=== PATIENT | male | born 1985 | race Asian ===

== ENCOUNTER 2021-05-18 12:13 | Emergency (ER) | payer BC, SELFPAY ==
[2021-05-18] VITALS (37 sets, daily range): BP systolic 141–170; BP diastolic 75–98; PULSE 88–120; RESP 14–27; TEMP 36.6; O2SAT 93–97
--- NOTE | 2021-05-18 12:15 | RT.EKG_ITS ---
APPROVED REPORT Exam: Resting ECG Reason for Exam: DIZZY,LEFT ARM PAIN Patient Location: E HR:104 bpm ECG Measurements Heart Rate 104 AXIS OK 137 P 24 QRSd 99 QRS 42 QT 366 T 168 QTc 481 Conclusion Sinus tachycardia...rate> 99 Probable left atrial enlargement...P >50mS, <-0.10mV V1 Consider anteroseptal infarct...Q >30mS, dimin R, V1-V2 Abnrm T, consider ischemia, anterolateral lds...T <-0.20mV, I aVL V2-V6
[2021-05-18 12:44] LABS: Abs Immature Grans 0.02 10^3/uL (0.0-0.06); Absolute Basophil Count 0.03 10^3/uL (0.0-0.2); Absolute Lymphocyte Count 1.25 10^3/uL (1.2-3.4); Absolute Monocyte Count 0.54 10^3/uL (0.1-0.8); Absolute Neutrophil Count 6.88 10^3/uL (1.2-6.7); Basophils % 0.3; HGB 17.4 g/dL (13.5-17.5); Immature Grans % 0.2; Lymphocytes % 14.3; MCH 29.1 pg (27.0-33.0); MCHC 34.1 % (32.0-36.0); MCV 85.4 fL (80-95); MPV 10.5 fL (8.0-11.0); Monocytes % 6.2; Nucleated RBC 0 %; Platelet Count 296 10^3/uL (130-400); RBC 5.97 10^6/uL (4.36-5.78); RDW 11.9 % (11.8-14.1); RDW-SD 37.1 fL; WBC 8.72 10^3/uL (4.4-10.8)
[2021-05-18 12:58] LABS: ALT 43 U/L (16-63); AST 23 U/L (15-37); Albumin 4.4 g/dL (3.4-5.0); Alkaline Phosphatase 78 U/L (46-116); Anion Gap 9.8 mmol/L (3-11); BUN 15 mg/dL (7-18); Bilirubin, Total 1.2 mg/dL (0.2-1.0); CO2 26.2 mmol/L (21.0-32.0); Chloride 103 mmol/L (98-107); Glucose 108 mg/dL (74-106); PTT Activated 25.4 sec (21.0-27.5); Potassium 3.9 mmol/L (3.5-5.1); Sodium 139 mmol/L (136-145); Total Protein 7.7 g/dL (6.4-8.2)
[2021-05-18 13:05] LABS: Source Nasal/Nares
[2021-05-18 13:05] LABS: Troponin I 241 ng/L (<or=60)
[2021-05-18 13:09] LABS: TSH (W/Ref FT4) 1.17 uIU/mL (0.36-3.74)
--- NOTE | 2021-05-18 13:13 | W.ED.GENAD ---
Discharge Plan Disposition Patient Disposition: PETER DEMARCO ([facility]) Condition: Serious Discharge Details Clinical Impression: Acute non-ST elevation myocardial infarction (NSTEMI), Acute electrocardiogram changes Primary Care Provider: Craig Agudelo ED Provider: Jorge Butts Home Meds and New Rx's Prescriptions: No Action fluticasone propionate [Flonase] 50 mcg/actuation [place],Suspension 2 spray INTRANASAL DAILY RF: 0 Discharge Data Discharge Date/Time-TO BE ENTERED AT DEPARTURE: 05/18/21 16:49 Medical Decision Making 1315 -- 35-year-old male with history of borderline hypertension, here with palpitations that started last night and chest discomfort that started this morning with associated lightheadedness. Consider ACS although patient has no known risk factors. EKG was reviewed and interpreted by me: Sinus tachycardia 104 bpm, concerning biphasic T waves inferior lateral, also concern for delta wave. Consider ACS and WPW. Consider myocarditis. Troponin I elevated at 241. I will initiate treatment with heparin and aspirin and plavix. I have called [facility] to request transfer to higher level of care. 1550 -- I spoke with math specialist at [facility], cardiology correctional supply supervisor at [facility], unfortunately there are capacity unable to accept the patient in transfer at this time but will plan to accept as soon as possible when a bed becomes available likely tomorrow. Recommend seeing if other tertiary care facility is able to accept to her. Polyethylene Combiner does recommend adding Lipitor 80 mg as well as nitroglycerin for pain. 1605 -- I spoke with Dr. Reyes (cardiology) who agrees with need for transfer and will accept the patient. I spoke with Dr. Vargas, who will accept patient in ED in transfer. Lab Data Lab results reviewed: Yes I reviewed the patient's lab results. Labs: Laboratory Tests Range/Units 05/18/21 05/18/21 05/18/21 12:37 12:37 12:37 WBC (4.4-10.8) 10^3/uL RBC (4.36-5.78) 10^6/uL Hgb (13.5-17.5) g/dL Hct (40.0-50.0) % MCV (80-95) fL MCH (27.0-33.0) pg MCHC (32.0-36.0) % RDW (11.8-14.1) % Plt Count (130-400) 10^3/uL MPV (8.0-11.0) fL Immature Gran % Neutrophils % Lymphocytes % Monocytes % Eosinophils % Basophils % Nucleated RBC % % Absolute Neutrophils (1.2-6.7) 10^3/uL Absolute Lymphocytes (1.2-3.4) 10^3/uL Absolute Monocytes (0.1-0.8) 10^3/uL Absolute Eosinophils (0.0-0.7) 10^3/uL Absolute Basophils (0.0-0.2) 10^3/uL APTT (21.0-27.5) sec 25.4 Sodium (136-145) mmol/L 139 Potassium (3.5-5.1) mmol/L 3.9 Chloride (98-107) mmol/L 103 Carbon Dioxide (21.0-32.0) mmol/L 26.2 Anion Gap (3-11) mmol/L 9.8 BUN (7-18) mg/dL 15 Creatinine (0.70-1.30) mg/dL 1.0 Estimated GFR/1.73 m2 (mL/min/1.73m2) >= 60.00 Glucose (74-106) mg/dL 108 H Calcium (8.5-10.1) mg/dL 9.0 Magnesium (1.8-2.4) mg/dL 2.0 Total Bilirubin (0.2-1.0) mg/dL 1.2 H AST (15-37) U/L 23 ALT (16-63) U/L 43 Alkaline Phosphatase (46-116) U/L 78 Troponin I (<or=60) ng/L 241 H* Total Protein (6.4-8.2) g/dL 7.7 Albumin (3.4-5.0) g/dL 4.4 TSH (0.36-3.74) uIU/mL 1.17 COVID-19 Source SARS-CoV-2 (PCR) (Negative) Range/Units 05/18/21 05/18/21 05/18/21 12:37 12:40 15:10 WBC (4.4-10.8) 10^3/uL 8.72 RBC (4.36-5.78) 10^6/uL 5.97 H Hgb (13.5-17.5) g/dL 17.4 Hct (40.0-50.0) % 51.0 H MCV (80-95) fL 85.4 MCH (27.0-33.0) pg 29.1 MCHC (32.0-36.0) % 34.1 RDW (11.8-14.1) % 11.9 Plt Count (130-400) 10^3/uL 296 MPV (8.0-11.0) fL 10.5 Immature Gran % 0.2 Neutrophils % 79.0 Lymphocytes % 14.3 Monocytes % 6.2 Eosinophils % 0.0 Basophils % 0.3 Nucleated RBC % % 0 Absolute Neutrophils (1.2-6.7) 10^3/uL 6.88 H Absolute Lymphocytes (1.2-3.4) 10^3/uL 1.25 Absolute Monocytes (0.1-0.8) 10^3/uL 0.54 Absolute Eosinophils (0.0-0.7) 10^3/uL 0.00 Absolute Basophils (0.0-0.2) 10^3/uL 0.03 APTT (21.0-27.5) sec Sodium (136-145) mmol/L Potassium (3.5-5.1) mmol/L Chloride (98-107) mmol/L Carbon Dioxide (21.0-32.0) mmol/L Anion Gap (3-11) mmol/L BUN (7-18) mg/dL Creatinine (0.70-1.30) mg/dL Estimated GFR/1.73 m2 (mL/min/1.73m2) Glucose (74-106) mg/dL Calcium (8.5-10.1) mg/dL Magnesium (1.8-2.4) mg/dL Total Bilirubin (0.2-1.0) mg/dL AST (15-37) U/L ALT (16-63) U/L Alkaline Phosphatase (46-116) U/L Troponin I (<or=60) ng/L 221 H* Total Protein (6.4-8.2) g/dL Albumin (3.4-5.0) g/dL TSH (0.36-3.74) uIU/mL COVID-19 Source Nasal/Nares SARS-CoV-2 (PCR) (Negative) Negative HPI General Mode of arrival: ambulatory. Date/Time Provider Initiated Documentation: 05/18/21 12:16. Limitations to Documentation: no limitations. Information obtained by: patient. HPI Narrative: 35-year-old male with history of borderline elevated blood pressure , otherwise healthy, presents today with chief complaint of chest discomfort. Patient notes last night he developed palpitations while in bed. Palpitations were moderate to severe. He has never had similar in the past. He was able to fall asleep and when he woke up he seemed to be feeling better. He went to work. While at work he develop chest discomfort described as a heaviness. He also noted some lightheadedness and difficulty concentrating. Discomfort in his chest radiated into his left arm. Chest discomfort started around 10 AM. He does not have active chest pain at this time. Related Data Home Medications Medication Instructions Recorded Confirmed fluticasone propionate [Flonase] 2 spray INTRANASAL DAILY 05/18/21 05/18/21 Allergies Allergy/AdvReac Type Severity Reaction Status Date / Time No Known Allergies Allergy Unverified 05/18/21 12:27 General Stated Complaint: Dizzy/Sync JENNIFFER: 2 Review of Systems All systems reviewed & are unremarkable except as noted in HPI and below Constitutional Constitutional: Denies fever(s) Cardiovascular Cardiovascular: Reports chest pain PFSH All Active Problems (Updated 05/18/21 @ 16:26 by Jorge Butts MD) Acute non-ST elevation myocardial infarction (NSTEMI) (Acute) Acute electrocardiogram changes (Acute) Social History Smoking/Tobacco Use Status: Never Smoking risk assessment performed?: Yes Alcohol Intake: current Alcohol Intake frequency: a few times a month Drug use: Never Do you feel safe at home: Yes Do you feel safe in your relationship?: Yes Exam Const General: cooperative and no acute distress HENMT Mouth: moist mucous membranes Eyes Conjunctivae: normal conjunctivae Sclera: normal sclerae Neck Neck: trachea midline and supple Resp Auscultation: clear to auscultation bilaterally, no rales, no rhonchi and no wheezes Cardio Rate: regular rate and not tachycardic Rhythm: regular rhythm GI Palpation: soft, not firm, no guarding, no masses, not rigid and nontender Skin General skin exam: no rashes or lesions noted Neuro General: patient alert, patient awake, patient oriented x3 and tone normal Extrem General: no calf tenderness and no edema Psych Appearance: grossly normal Mental Status: mental status grossly normal Course Vital Signs Vital signs: Vital Signs Temperature 36.6 C 05/18/21 12:21 Pulse 110 H 05/18/21 12:21 Respiratory Rate 18 05/18/21 12:21 Blood Pressure 159/94 H 05/18/21 12:21 Pulse Oximetry 96 05/18/21 12:21 Temperature 36.6 C 05/18/21 12:21 Temperature Source Temporal Artery Scan 05/18/21 12:21 Pulse 110 H 05/18/21 12:21 Respiratory Rate 18 05/18/21 12:29 Respiratory Effort Non-Labored 05/18/21 12:29 Respiratory Depth Normal 05/18/21 12:29 Respiratory Pattern Normal 05/18/21 12:29 Blood Pressure 159/94 H 05/18/21 12:21 Blood Pressure Position Supine 05/18/21 12:21 Pulse Oximetry 96 05/18/21 12:21 Oxygen Delivery Method Room Air 05/18/21 12:21 Oxygen Flow Rate 0 05/18/21 12:21 Pain Level 2 05/18/21 12:21 Lab/Test Results Lab/Test Results: Laboratory Tests Range/Units 05/18/21 05/18/21 05/18/21 12:37 12:37 12:37 WBC (4.4-10.8) 10^3/uL 8.72 RBC (4.36-5.78) 10^6/uL 5.97 H Hgb (13.5-17.5) g/dL 17.4 Hct (40.0-50.0) % 51.0 H MCV (80-95) fL 85.4 MCH (27.0-33.0) pg 29.1 MCHC (32.0-36.0) % 34.1 RDW (11.8-14.1) % 11.9 Plt Count (130-400) 10^3/uL 296 MPV (8.0-11.0) fL 10.5 Immature Gran % 0.2 Neutrophils % 79.0 Lymphocytes % 14.3 Monocytes % 6.2 Eosinophils % 0.0 Basophils % 0.3 Nucleated RBC % % 0 Absolute Neutrophils (1.2-6.7) 10^3/uL 6.88 H Absolute Lymphocytes (1.2-3.4) 10^3/uL 1.25 Absolute Monocytes (0.1-0.8) 10^3/uL 0.54 Absolute Eosinophils (0.0-0.7) 10^3/uL 0.00 Absolute Basophils (0.0-0.2) 10^3/uL 0.03 APTT (21.0-27.5) sec 25.4 Sodium (136-145) mmol/L 139 Potassium (3.5-5.1) mmol/L 3.9 Chloride (98-107) mmol/L 103 Carbon Dioxide (21.0-32.0) mmol/L 26.2 Anion Gap (3-11) mmol/L 9.8 BUN (7-18) mg/dL 15 Creatinine (0.70-1.30) mg/dL 1.0 Estimated GFR/1.73 m2 (mL/min/1.73m2) >= 60.00 Glucose (74-106) mg/dL 108 H Calcium (8.5-10.1) mg/dL 9.0 Magnesium (1.8-2.4) mg/dL 2.0 Total Bilirubin (0.2-1.0) mg/dL 1.2 H AST (15-37) U/L 23 ALT (16-63) U/L 43 Alkaline Phosphatase (46-116) U/L 78 Troponin I (<or=60) ng/L 241 H* Total Protein (6.4-8.2) g/dL 7.7 Albumin (3.4-5.0) g/dL 4.4 COVID-19 Source Range/Units 05/18/21 12:40 WBC (4.4-10.8) 10^3/uL RBC (4.36-5.78) 10^6/uL Hgb (13.5-17.5) g/dL Hct (40.0-50.0) % MCV (80-95) fL MCH (27.0-33.0) pg MCHC (32.0-36.0) % RDW (11.8-14.1) % Plt Count (130-400) 10^3/uL MPV (8.0-11.0) fL Immature Gran % Neutrophils % Lymphocytes % Monocytes % Eosinophils % Basophils % Nucleated RBC % % Absolute Neutrophils (1.2-6.7) 10^3/uL Absolute Lymphocytes (1.2-3.4) 10^3/uL Absolute Monocytes (0.1-0.8) 10^3/uL Absolute Eosinophils (0.0-0.7) 10^3/uL Absolute Basophils (0.0-0.2) 10^3/uL APTT (21.0-27.5) sec Sodium (136-145) mmol/L Potassium (3.5-5.1) mmol/L Chloride (98-107) mmol/L Carbon Dioxide (21.0-32.0) mmol/L Anion Gap (3-11) mmol/L BUN (7-18) mg/dL Creatinine (0.70-1.30) mg/dL Estimated GFR/1.73 m2 (mL/min/1.73m2) Glucose (74-106) mg/dL Calcium (8.5-10.1) mg/dL Magnesium (1.8-2.4) mg/dL Total Bilirubin (0.2-1.0) mg/dL AST (15-37) U/L ALT (16-63) U/L Alkaline Phosphatase (46-116) U/L Troponin I (<or=60) ng/L Total Protein (6.4-8.2) g/dL Albumin (3.4-5.0) g/dL COVID-19 Source Nasal/Nares Critical Care Time Critical Care Time Critical Care Time: Yes Total Critical Care Time: 45 Attestation: I spent greater than 45 minutes addressing this patient's immediate life threats. Please see MDM section of note. This time was spent engaged in work directly related to the patient's care, exclusive of separate procedures, and failure to initiate these interventions would have likely resulted in clinically significant or life threatening deterioration in the patient's condition. PAWSS Have you Been Recently Intoxicated or Drunk Within the Last 30 days?: No Have you Ever Experienced Previous Episodes of Alcohol Withdrawal?: No Have you ever Experienced Withdrawal Seizures?: No Have you ever Experienced Delirium Tremens(DT)s?: No Have you ever undergone Alcohol Rehabilitation Treatment (i.e, inpt ot outpatient treatment programs)?: No Have you ever Experienced Blackouts?: No Have you ever Combined Alcohol with other Downers within the last 90 days?: No Have you ever Combined Alcohol with any other Substance of Abuse during the last 90 days?: No Positive Blood Alcohol level on Presentation? [PCS.BAL]: No Evidence of Increased Autonomic Activity (i.e. HR>120, tremor, sweating, agitation, nausea)?: No Result: 0
[2021-05-18] MEDS: Aspirin 325 MG TAB PO (13:24)
--- NOTE | 2021-05-18 15:00 | RT.EKG_ITS ---
APPROVED REPORT Exam: Resting ECG Reason for Exam: palpitations Patient Location: E HR:95 bpm ECG Measurements Heart Rate 95 AXIS FL 150 P 19 QRSd 105 QRS 42 QT 382 T 164 QTc 479 Conclusion Sinus rhythm...normal P axis, V-rate 60- 99 Consider anteroseptal infarct...Q >30mS, dimin R, V1-V2 Abnormal T, consider ischemia, diffuse leads...T <-0.20mV, ant/lat/inf
[2021-05-18 15:33] LABS: COVID-19 PCR Negative (Negative)
[2021-05-18] MEDS: nitroGLYcerin 0.4 MG TAB SL (16:01)
[2021-05-18 16:02] LABS: Troponin I 221 ng/L (<or=60)
[2021-05-18] MEDS: Atorvastatin 40 MG TAB 80 MG PO (16:03)
[2021-05-18] MEDS: nitroGLYcerin in D5W 50 MG/250 ML BTL IV (16:34)
== END 2021-05-18 16:49 | disposition short-term general hospital (02) ==
PROVIDERS: Emergency Provider Student in an Organized Health Care Education/Training Program; PCP Physician Assistant Medical
DX: I21.4 Non-ST elevation (NSTEMI) myocardial infarction (principal); R94.31 Abnormal electrocardiogram [ECG] [EKG]; R03.0 Elevated blood-pressure reading, without diagnosis of hypertension
CPT/HCPCS: 36415; 80053; 87635; 93005; 96365; 96367; 96376; 99291; 83735; 84443; 84484; 85025; 85730; 93010

== ENCOUNTER 2021-06-26 22:09 | Emergency (ER) | payer BC, SELFPAY ==
[2021-06-26] VITALS (14 sets, daily range): BP systolic 124–158; BP diastolic 69–90; PULSE 76–106; RESP 9–22; TEMP 36.5; O2SAT 94–98
--- NOTE | 2021-06-26 22:00 | RT.EKG_ITS ---
APPROVED REPORT Exam: Resting ECG Reason for Exam: fast hr Patient Location: E HR:82 bpm ECG Measurements Heart Rate 82 AXIS [place] 158 P 16 QRSd 103 QRS 0 QT 392 T 214 QTc 457 Conclusion Sinus rhythm...normal P axis, V-rate 60- 99 Probable left atrial enlargement...P >50mS, <-0.10mV V1 Inferior infarct, age indeterminate...Q>35mS, T neg, II III aVF Anteroseptal infarct, age indeterminate...Q >35mS, T neg, V1-V2 Physician: Rate 82, sinus rhythm, OH 158, QT 392, inverted T wave in V2 V4 V5 and V6. No significant ST elevations. Inverted T wave also present in lead I and lead II. As well as aVF. No change from madelin or EKG except for the inverted T waves in V2, but this may be lead placement related. No evidence of STEMI.
[2021-06-26] MEDS: Normal Saline 500 ML IV (22:33)
[2021-06-26 22:39] LABS: Abs Immature Grans 0.02 10^3/uL (0.0-0.06); Absolute Basophil Count 0.06 10^3/uL (0.0-0.2); Absolute Eosinophil Count 0.07 10^3/uL (0.0-0.7); Absolute Lymphocyte Count 3.05 10^3/uL (1.2-3.4); Absolute Neutrophil Count 4.87 10^3/uL (1.2-6.7); Basophils % 0.7; Eosinophils % 0.8; HCT 47.5 % (40.0-50.0); HGB 16.4 g/dL (13.5-17.5); Immature Grans % 0.2; MCH 29.7 pg (27.0-33.0); MCHC 34.5 % (32.0-36.0); MCV 85.9 fL (80-95); MPV 10.3 fL (8.0-11.0); Neutrophils % 54.3; Nucleated RBC 0 %; Platelet Count 302 10^3/uL (130-400); RBC 5.53 10^6/uL (4.36-5.78); RDW-SD 37.9 fL; WBC 8.97 10^3/uL (4.4-10.8)
[2021-06-26 23:01] LABS: ALT 27 U/L (16-63); AST 16 U/L (15-37); Albumin 3.9 g/dL (3.4-5.0); Alkaline Phosphatase 83 U/L (46-116); Anion Gap 10.1 mmol/L (3-11); BUN 19 mg/dL (7-18); Bilirubin, Total 0.5 mg/dL (0.2-1.0); CO2 23.9 mmol/L (21.0-32.0); Calcium 8.3 mg/dL (8.5-10.1); Chloride 106 mmol/L (98-107); Glucose 143 mg/dL (74-106); NT-proBNP 1184 pg/mL (<300); Potassium 3.7 mmol/L (3.5-5.1); Sodium 140 mmol/L (136-145); TSH (W/Ref FT4) 2.34 uIU/mL (0.36-3.74); Total Protein 7.1 g/dL (6.4-8.2)
[2021-06-26 23:02] LABS: Troponin I 224 ng/L (<or=60)
[2021-06-26 23:07] LABS: Magnesium 1.6 mg/dL (1.8-2.4); PHOSPHORUS 2.7 mg/dL (2.6-4.7)
--- NOTE | 2021-06-26 23:30 | RT.EKG_ITS ---
APPROVED REPORT Exam: Resting ECG Reason for Exam: chest pain Patient Location: E HR:77 bpm ECG Measurements Heart Rate 77 AXIS RI 161 P 9 QRSd 108 QRS 41 QT 402 T 174 QTc 454 Conclusion Sinus rhythm...normal P axis, V-rate 60- 99 Anteroseptal infarct, age indeterminate...Q >35mS, T neg, V1-V2 Abnormal T, probable ischemia, lateral leads...T <-0.50mV, I aVL V5 V6 Physician: Rate 77, QRS 108, QT 402, sinus rhythm, no significant ST elevation or depression. Invert ed T waves is present in V2, V4, V5, V6, lead II and lead I. No significant ST elevation or depressi on. No changes from prior EKG. No evidence of STEMI.
--- NOTE | 2021-06-26 23:51 | W.ED.GENAD ---
Discharge Plan Disposition Patient Disposition: HOME Condition: Good Discharge Details Clinical Impression: Chest pain, Hypertrophic cardiomyopathy Primary Care Provider: Craig Agudelo ED Provider: Carrington Chavez Home Meds and New Rx's Prescriptions: Continued metoprolol succinate 25 mg tablet extended release 24 hr 25 mg PO DAILY RF: 0 fluticasone propionate 50 mcg/actuation [place],Suspension 2 spray INTRANASAL DAILY RF: 0 Discharge Instructions Additional Instructions: At this time your work-up shows good stability for your heart. Please contact the [facility] and follow-up promptly with them. Please increase your metoprolol to 50 mg daily until you are seen and reassessed by your supervisor customer services. Dr. Butts would be happy to discuss your procedure more. Please feel free to contact him at [email or web address] If you notice any worsening of your symptoms, or any new symptoms such as vomiting, diarrhea, fever, chills, shortness of breath, chest pain, numbness, weakness, or fainting , please return immediately to the emergency department for reevaluation. Please follow up with your primary care provider as soon as possible for reassessment and reevaluation. As always, it was a pleasure participating in your medical care today. Referrals: Craig Agudelo [Primary Care Provider] - Medical Decision Making This is a 36-year-old male with no significant past medical history except for a recent diagnosis of a hypertrophic cardiomyopathy was diagnosed about a month ago. At that time the patient was sent to the [facility], he was noted to have an apical variant of hypertrophic cardiomyopathy. He was discharged, and is scheduled to have a defibrillator placed in 3 weeks. Since his initial episode he has had continued mild episodes of intermittent chest pain, however tonight he had about an hour and a half of slightly elevated heart rate in the low 100s. With his history, and recommendations from emergency room patient to come for further evaluation. He denies any significant chest pain. He does admit to mild achiness. He denies any tearing or ripping sensation. He denies any significant caffeine intake, or any changes in his lifestyle behaviors. He has been taking his daily 25 mg of Toprol as directed. He denies any syncope. He denies any significant lightheadedness no other modifying factors. no other complaints at this time. Physical exam demonstrates a well-appearing male, heart rate in the low 100s. Blood pressure does appear mildly hypertensive. Pulses intact. Bedside echo demonstrates notable hypertrophic cardiomyopathy, no pericardial effusion. No signs of clinical tamponade. EKG shows evidence of inverted T waves, but no significant elevation. Unchanged from prior EKG 1 month ago. Patient's laboratory work-up demonstrates elevated proBNP at 1100, and elevated troponin at 224, and slightly low calcium and a slightly low magnesium. Patient's troponin on his last visit here was actually at the same level. Reached out to at the [facility] cardiology. Discussed the case, laboratory findings, and EKG findings. At this time cardiology feels that elevated troponin mild chest pain and the EKG which has been unchanged since his last visit is consistent with his normal pathogenesis and does not merit admission at this time. She does recommend getting a repeat opponent to make sure it is not upward trending. Symptoms do not appear consistent with ACS currently. She feels that discharge with close follow-up is reasonable if there is no significant uptrending troponin. We will continue to monitor closely, give magnesium and calcium to optimize his electrolyte status. 2:19 AM Patient's repeat troponin is 234. Contacted [facility] cardiology and again discussed the case with them, they feel that this is reflective of a plateau stage, and not reflective of critical increase. They feel that discharge is appropriate from a cardiology setting. On reassessment the patient continues to feel well. He denies any significant chest pain at this time. His heart rate is normal, his blood pressure is stable. He has no lightheadedness or syncope. He feels well and feels comfortable going home. Cardiology did recommend increasing his metoprolol to 50 mg daily, which was discussed with the patient. Repeat EKG shows no acute changes whatsoever. Patient feels well and at this time is clinically appropriate for discharge. Recommend close follow-up with his supervisor customer services, he had contact with his supervisor customer services over the phone tomorrow. Discussed red flags for which to return. I have extensively reviewed the treatment plan and discharge instructions with the patient. I have addressed all patient concerns at this time. The patient was made aware of what symptoms to monitor for that would warrant a return to the emergency department. Discussed the plan with the patient, they demonstrate verbal understanding and agreement with our assessment and plan at this time. The documentation in this chart was dictated using Dragon dictation software. Please excuse any dictation errors. EKG 23: 11 Rate 82, sinus rhythm, CO 158, QT 392, inverted T wave in V2 V4 V5 and V6. No significant ST elevations. Inverted T wave also present in lead I and lead II. As well as aVF. No change from prior EKG except for the inverted T waves in V2, but this may be lead placement related. No evidence of STEMI. EKG 1: 01 Rate 77, QRS 108, QT 402, sinus rhythm, no significant ST elevation or depression. Inverted T waves is present in V2, V4, V5, V6, lead II and lead I. No significant ST elevation or depression. No changes from prior EKG. No evidence of STEMI. HPI General Date/Time Provider Initiated Documentation: 06/26/21 22:12. HPI Narrative: This is a 36-year-old male with no significant past medical history except for a recent diagnosis of a hypertrophic cardiomyopathy was diagnosed about a month ago. At that time the patient was sent to the [facility], he was noted to have an apical variant of hypertrophic cardiomyopathy. He was discharged, and is scheduled to have a defibrillator placed in 3 weeks. Since his initial episode he has had continued mild episodes of intermittent chest pain, however tonight he had about an hour and a half of slightly elevated heart rate in the low 100s. With his history, and recommendations from emergency room patient to come for further evaluation. He denies any significant chest pain. He does admit to mild achiness. He denies any tearing or ripping sensation. He denies any significant caffeine intake, or any changes in his lifestyle behaviors. He has been taking his daily 25 mg of Toprol as directed. He denies any syncope. He denies any significant lightheadedness no other modifying factors. no other complaints at this time. Related Data Home Medications Medication Instructions Recorded Confirmed fluticasone propionate 2 spray INTRANASAL DAILY 05/18/21 05/18/21 metoprolol succinate 25 mg PO DAILY 06/26/21 06/26/21 Allergies Allergy/AdvReac Type Severity Reaction Status Date / Time No Known Allergies Allergy Unverified 06/26/21 22:28 General Stated Complaint: Palpitatns JENNIFFER: 3 Review of Systems All systems reviewed & are unremarkable except as noted in HPI and below PFSH All Active Problems (Updated 06/27/21 @ 02:19 by Carrington Chavez DO) Chest pain (Acute) Hypertrophic cardiomyopathy (Acute) Social History Smoking/Tobacco Use Status: Never Smoking risk assessment performed?: Yes Alcohol Intake: current Alcohol Intake frequency: a few times a month Drug use: Never Substance use type: does not use and former substance user Do you feel safe at home: Yes Do you feel safe in your relationship?: Yes Exam Narrative Exam Narrative: 1.Const: Well-nourished, Well-developed, appearing stated age 2.Eyes: PERRL, no conjunctival injection, and symmetrical lids. 3.ENT: Atraumatic external nose and ears. Moist MM. Neck: Symmetric, trachea midline, No thyromegaly. 4.CVS: +S1/S2, No murmurs or gallops. Peripheral pulses 2+ and equal in all extremities. Brisk capillary refill in all extremities. 5.RESP: Unlabored respiratory effort. Clear to auscultation bilaterally. No wheezes rales or rhonchi 6.GI: Soft, Nontender/Nondistended, No hepatosplenomegaly. No guarding or rebound. 7.MSK: Normocephalic/Atraumatic, Extremities w/o deformity or ttp No cyanosis or clubbing, Normal movement of all extremities 8.Skin: Warm, Dry. No rashes or lesions. 9.Neuro: foundry tender II-XII grossly intact. Sensation grossly intact, no focal neurologic deficits. 10.Psych: (AAO) x3. Appropriate mood and affect Course Vital Signs Vital signs: Vital Signs Temperature 36.5 C 06/26/21 22:16 Pulse 105 H 06/26/21 22:16 Respiratory Rate 14 06/26/21 22:16 Blood Pressure 158/90 H 06/26/21 22:16 Pulse Oximetry 97 06/26/21 22:16 Temperature 36.5 C 06/26/21 22:16 Temperature Source Skin 06/26/21 22:16 Pulse 81 06/26/21 23:31 Pulse 91 H 06/26/21 23:31 Respiratory Rate 22 06/26/21 23:31 Respiratory Effort Non-Labored 06/26/21 22:28 Blood Pressure 126/73 06/26/21 23:31 Blood Pressure Mean 84 06/26/21 23:31 Pulse Oximetry 97 06/26/21 23:31 Oxygen Delivery Method Room Air 06/26/21 22:16 Oxygen Flow Rate 0 06/26/21 22:16 Pain Level 0 06/26/21 22:16 Lab/Test Results Lab/Test Results: Laboratory Tests Range/Units 06/26/21 06/26/21 06/26/21 22:36 22:36 22:36 WBC (4.4-10.8) 10^3/uL 8.97 RBC (4.36-5.78) 10^6/uL 5.53 Hgb (13.5-17.5) g/dL 16.4 Hct (40.0-50.0) % 47.5 MCV (80-95) fL 85.9 MCH (27.0-33.0) pg 29.7 MCHC (32.0-36.0) % 34.5 RDW (11.8-14.1) % 12.0 Plt Count (130-400) 10^3/uL 302 MPV (8.0-11.0) fL 10.3 Immature Gran % 0.2 Neutrophils % 54.3 Lymphocytes % 34.0 Monocytes % 10.0 Eosinophils % 0.8 Basophils % 0.7 Nucleated RBC % % 0 Absolute Neutrophils (1.2-6.7) 10^3/uL 4.87 Absolute Lymphocytes (1.2-3.4) 10^3/uL 3.05 Absolute Monocytes (0.1-0.8) 10^3/uL 0.90 H Absolute Eosinophils (0.0-0.7) 10^3/uL 0.07 Absolute Basophils (0.0-0.2) 10^3/uL 0.06 Sodium (136-145) mmol/L 140 Potassium (3.5-5.1) mmol/L 3.7 Chloride (98-107) mmol/L 106 Carbon Dioxide (21.0-32.0) mmol/L 23.9 Anion Gap (3-11) mmol/L 10.1 BUN (7-18) mg/dL 19 H Creatinine (0.70-1.30) mg/dL 1.0 Estimated GFR/1.73 m2 (mL/min/1.73m2) >= 60.00 Glucose (74-106) mg/dL 143 H Calcium (8.5-10.1) mg/dL 8.3 L Phosphorus (2.6-4.7) mg/dL 2.7 Magnesium (1.8-2.4) mg/dL 1.6 L Total Bilirubin (0.2-1.0) mg/dL 0.5 AST (15-37) U/L 16 ALT (16-63) U/L 27 Alkaline Phosphatase (46-116) U/L 83 Troponin I (<or=60) ng/L 224 H* NT-Pro-B Natriuret Pep (<300) pg/mL 1184 H Total Protein (6.4-8.2) g/dL 7.1 Albumin (3.4-5.0) g/dL 3.9 TSH (0.36-3.74) uIU/mL 2.34
[2021-06-26] MEDS: MAGNESIUM SULFATE 1 GM/100 ML BAG IVPB (23:52)
[2021-06-26] MEDS: Calcium Gluconate 4.65 MEQ/10 ML VIAL 4.65 MG IVP (23:52)
[2021-06-27] VITALS (23 sets, daily range): BP systolic 130–144; BP diastolic 67–78; PULSE 70–87; RESP 12–24; O2SAT 94–97
[2021-06-27 01:41] LABS: Troponin I 234 ng/L (<or=60)
== END 2021-06-27 02:28 | disposition home or self-care (01) ==
PROVIDERS: Emergency Provider Student in an Organized Health Care Education/Training Program; PCP Physician Assistant Medical
DX: R07.9 Chest pain, unspecified (principal); I42.2 Other hypertrophic cardiomyopathy; R00.2 Palpitations
CPT/HCPCS: 36415; 80053; 93005; 96361; 96365; 96375; 99284; 83735; 83880; 84100; 84443; 84484; 85025; 93010; J0610; J3475

== ENCOUNTER 2023-10-22 11:21 | Emergency (ER) | payer BC, SELFPAY ==
[2023-10-22] VITALS (10 sets, daily range): BP systolic 98–150; BP diastolic 51–80; PULSE 66–88; RESP 15–20; TEMP 36.7–36.8; O2SAT 94–98
--- NOTE | 2023-10-22 11:45 | RT.EKG_ITS ---
APPROVED REPORT Exam: Resting ECG Reason for Exam: chest pain Patient Location: E HR:72 bpm ECG Measurements Heart Rate 72 AXIS KS 166 P -1 QRSd 107 QRS 23 QT 424 T 155 QTc 464 Conclusion Sinus rhythm...normal P axis, V-rate 60- 99 Abnormal T, consider ischemia, diffuse leads...T <-0.20mV, ant/lat/inf
--- NOTE | 2023-10-22 11:45 | DI.CT_ITS ---
Exam(s) CT CAROTID NECK CTA EXAM: CT CAROTID NECK CTA CLINICAL HISTORY: neck pain. ? carotid artery dissection. TECHNIQUE: Imaging Protocol: Axial CT angiography was performed with multi-slice acquisition and mu lti-planar and/or 3D reconstructions. CONTRAST MATERIAL: Intravenous: Omnipaque 350 Contrast volume:structured data in ml mL COMPARISON: No exams were available for comparison FINDINGS: There is artifact from the patient's dental amalgam. The visualized pulmonary arteries are unremarkable. The visualized aortic arch is unremarkable. CTA Neck W: Common Carotid: Right: No aneurysm, occlusion or significant stenosis. Left: No aneurysm, occlusion or significant stenosis. External Carotid: Right: No aneurysm, occlusion or significant stenosis. Left: No aneurysm, occlusion or significant stenosis. Internal Carotid: Right: No aneurysm, occlusion or significant stenosis. Left: No aneurysm, occlusion or significant stenosis. Vertebral Artery: Right: No aneurysm, occlusion or significant stenosis. Left: No aneurysm, occlusion or significant stenosis. Lung Apices: Normal. No evidence of an apical pneumothorax or infiltrate. Bones: Normal. Soft Tissues: There is a implantable cardiac device in the left anterior chest. The thyroid gland is grossly unremarkable. IMPRESSION: 1. No evidence of stenosis, occlusion or dissection. RADIATION DOSE DELIVERED: 325.8mGy.cm Total DLP 325.8mGy.cm Total DLP DATA REPOSITORY: All CT scans at this facility are submitted to the National Radiology Data Registry (NRDR) Dose Index Registry (DIR) with the [employer] (ACR). RADIATION OPTIMIZATION: All CT scans at this facility use at least one of these dose optimization te chniques: automated exposure control; mA and/or kV adjustment per patient size (includes targeted exa ms where dose is matched to clinical indication); or iterative reconstruction.
--- NOTE | 2023-10-22 11:56 | ED.GENADUL_ITS ---
Discharge Plan Disposition Patient Disposition: Home Discharge Details Clinical Impression: Neck pain Primary Care Provider: Craig Agudelo ED Provider: Santi Parr Home Meds and New Rx's Prescriptions: No Action metoprolol succinate 25 mg tablet extended release 24 hr 100 mg PO BID Patient Comments: TAKE ONE TABLET BY MOUTH AT BEDTIME spironolactone 50 mg tablet 50 mg PO DAILY dapagliflozin propanediol [Farxiga] 10 mg tablet 10 mg PO DAILY olmesartan [Benicar] 40 mg tablet 40 mg PO DAILY fluticasone propionate 50 mcg/actuation [place],Suspension 2 spray INTRANASAL DAILY Discharge Instructions Instructions: Neck Pain (ED) Additional Instructions: You were seen in the emergency department after an episode of neck pain. We performed labs, EKG, and chest x-ray that were unremarkable. We performed a CT angiogram of your neck to evaluate your carotid arteries. This was unremarkable and showed no signs of dissection or occlusion or aneurysm. Your symptoms improved. The exact cause of your symptoms today is not known. 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 Return here for recurrent symptoms that do not resolve rapidly or if it is associated with severe shortness of breath or chest pain. Referrals: Craig Agudelo [Primary Care Provider] - 1 week HPI General Date/Time Provider Initiated Documentation: 10/22/23 11:36 . HPI Narrative: 38-year-old male presents with left-sided neck pain. History of apical hyp ertrophic cardiomyopathy with AICD placement is now presenting with left-sided neck pain. Started this morning at around 1030. Describes it as a pulsating. Does not feel like his AICD fired. He is not having chest pain or shortness of breath. Denying any other complaints. Related Data Home Medications Medication Instructions Recorded Confirmed fluticasone propionate 50 2 spray intranasal DAILY 05/18/21 10/22/23 mcg/actuation nasal spray,suspension metoprolol succinate 25 mg 100 mg PO BID 06/26/21 10/22/23 tablet,extended release 24 hr dapagliflozin propanediol 10 mg 10 mg PO DAILY 10/22/23 10/22/23 tablet (Farxiga) olmesartan 40 mg tablet (Benicar) 40 mg PO DAILY 10/22/23 10/22/23 spironolactone 50 mg tablet 50 mg PO DAILY 10/22/23 10/22/23 Allergies Allergy/AdvReac Type Severity Reaction Status Date / Time No Known Allergies Allergy Unverified 10/22/23 11:31 General Stated Complaint: GenMedical JENNIFFER: 3 Review of Systems Constitutional Constitutional: Denies chills, Denies fever(s) and Denies headache(s) Eyes Eyes: Denies change in vision ENT Ears, Nose, Mouth, and Throat: Denies headache(s) and Denies odynophagia Cardiovascular Cardiovascular: Denies chest pain and Denies dyspnea Respiratory Respiratory: Denies dyspnea Gastrointestinal Gastrointestinal: Denies abdominal pain, Denies diarrhea, Denies nausea, Denies odynophagia and Denies vomiting Genitourinary Genitourinary: Denies dysuria Musculoskeletal Musculoskeletal: Denies myalgias Integumentary/Breasts Skin/Breast: Denies changing lesions Neurologic Neurologic: Denies behavioral changes and Denies headache(s) Psychiatric Psychiatric: Denies behavioral changes Endocrine Endocrine: Denies heat intolerance Hematologic/Lymphatic Hematologic/Lymphatic: Denies lymphadenopathy Exam Const General: cooperative Nutritional Appearance: average body habitus Orientation: alert, awake and oriented x3 HENMT Head: normal to inspection Ears: external ears normal Mouth: moist mucous membranes Eyes Pupils: PERRL EOM: EOM intact bilaterally and No nystagmus Neck Neck: full ROM and no tracheal deviation Chest Chest: normal inspection of the chest Resp Auscultation: clear to auscultation bilaterally Cardio Rate: regular rate Rhythm: regular rhythm GI Inspection: normal to inspection Palpation: soft, no guarding, not rigid and nontender Back/Spine/Pelvis Back: No no CVA tenderness Thoracic/Lumbar Spine: thoracic and lumbar spine normal to inspection Skin General skin exam: no rashes or lesions noted Neuro General: patient alert, patient awake and patient oriented x3 Cranial Nerves: CN's II-XI intact bilaterally, PERRL and no nystagmus Cognition: normal cognition Motor: muscle tone normal throughout and strength 5/5 throughout Sensory Exam: no sensory deficits noted Extrem General: normal to inspection Course Vital Signs Vital signs: Vital Signs Temperature 36.8 C 10/22/23 11:24 Pulse 88 10/22/23 11:24 Respiratory Rate 18 10/22/23 11:24 Blood Pressure 150/80 H 10/22/23 11:24 Pulse Oximetry 98 10/22/23 11:24 Temperature 36.8 C 10/22/23 11:43 Pulse 88 10/22/23 11:43 Respiratory Rate 18 10/22/23 11:43 Respiratory Effort Normal 10/22/23 11:37 Respiratory Depth Normal 10/22/23 11:37 Respiratory Pattern Normal 10/22/23 11:37 Blood Pressure 150/80 H 10/22/23 11:43 Blood Pressure Position Sitting 10/22/23 11:43 Pulse Oximetry 98 10/22/23 11:43 Oxygen Delivery Method Room Air 10/22/23 11:43 Oxygen Flow Rate 0 10/22/23 11:43 Pain Level 0 10/22/23 11:43 Medical Decision Making This is a 38-year-old male history of apical hypertrophic cardiomyopathy status post AICD placement who presents with left-sided neck pulsations. I do not appreciate a bruit or thrill on examination. His vital signs are unremarkable. Patient is concerned for carotid artery dissection and will get CTA neck to evaluate for this etiology. Doubt that this is related to the AICD firing but will interrogate his AICD here. Doubt arrhythmia or ACS but will check EKG and cardiac enzymes. Will get chest x-ray to look for pneumonia or pneumothorax. Will get broad labs look for electrolyte or metabolic cause of the patient's symptoms. Otherwise resting comfortably without pain presently. Will await initial testing and reevaluate. 341pm Chest x-ray and labs unremarkable. EKG unchanged from prior. CT angiogram of the neck is unremarkable. Troponin is elevated but consistent with priors. I do not think that this represents acute coronary syndrome. Repeat troponin downtrending. Consistent with priors. He is symptom-free now and would like to leave. Told him to follow-up with his primary care doctor and garbage stoker. Will discharge with return precautions. Imaging Data Radiologic Study: Attestation: I personally reviewed and interpreted this imaging study as follows: Imaging: X-Ray (chest) My impression: Unremarkable chest x-ray with appropriately placed AICD leads. Radiologist's impression: Unremarkable Radiologic Study #2: Imaging: CT Scan (angiogram neck) My impression: No stenosis, occlusion, or dissection to the carotid arteries Radiologist's impression: Unremarkable Lab Data Lab results reviewed: Yes I reviewed the patient's lab results. Labs: Elevated troponin consistent with priors. Stable on repeat. Otherwise labs unr emarkable. ECG Data Attestation: I personally reviewed and interpreted this ECG (s) as follows: Prior ECG tracings: available for review Interpretation: Sinus rhythm with normal rate. Normal axis and [place] intervals. T wave inversions in the anterolateral leads consistent with prior EKGs. Quality:SDOH Health Related Social Needs: No Data to Display PFSH All Active Problems (Updated 10/22/23 @ 14:26 by Santi Parr MD) Neck pain (Acute) Social History Smoking/Tobacco Use Status: Never Smoking risk assessment performed?: Yes Alcohol Intake: current Alcohol Intake frequency: a few times a month Drug use: Never Substance use type: does not use and former substance user Do you feel safe at home: Yes Do you feel safe in your relationship?: Yes
[2023-10-22 12:11] LABS: Abs Immature Grans 0.02 10^3/uL (0.0-0.06); Absolute Basophil Count 0.04 10^3/uL (0.0-0.2); Absolute Eosinophil Count 0.03 10^3/uL (0.0-0.7); Absolute Lymphocyte Count 1.58 10^3/uL (1.2-3.4); Absolute Monocyte Count 0.73 10^3/uL (0.1-0.8); Basophils % 0.5 %; Eosinophils % 0.4 %; Immature Grans % 0.2 %; Lymphocytes % 19.5 %; MCH 29.7 pg (27.0-33.0); MCV 88 fL (80-95); MPV 10.3 fL (8.0-11.0); Neutrophils % 70.4 %; Platelet Count 288 10^3/uL (130-400); RBC 5.92 10^6/uL (4.36-5.78); RDW 11.9 % (11.8-14.1); RDW-SD 38.4 fL
[2023-10-22 12:13] LABS: HCT 51.8 % (40.0-50.0); HGB 17.6 g/dL (13.5-17.5)
[2023-10-22 12:43] LABS: ALT 43 U/L (16-63); AST 24 U/L (15-37); Albumin 4.4 g/dL (3.4-5.0); Alkaline Phosphatase 66 U/L (46-116); BUN 14 mg/dL (7-18); Bilirubin, Total 1.1 mg/dL (0.2-1.0); CREATININE 1.2 mg/dL (0.70-1.30); Calcium 8.9 mg/dL (8.5-10.1); Chloride 102 mmol/L (98-107); Estimated GFR 78.89 (mL/min/1.73m2); Glucose 98 mg/dL (74-106); Magnesium 1.7 mg/dL (1.8-2.4); NT-proBNP 1729 pg/mL (<300); Potassium 3.8 mmol/L (3.5-5.1); Sodium 139 mmol/L (136-145); Total Protein 7.8 g/dL (6.4-8.2)
[2023-10-22 12:45] LABS: Troponin I 454 ng/L (< or =60)
--- NOTE | 2023-10-22 13:08 | DI.RAD_ITS ---
Exam(s) XR CHEST 2V PA LATERAL EXAM: XR CHEST 2V PA LATERAL CLINICAL HISTORY: chest pain TECHNIQUE: 2D digital imaging was performed of the chest. Two images were obtained. PA and lateral views were obtained. COMPARISON: No exams were available for comparison FINDINGS: MEDIASTINUM: Normal. HEART: Normal. Cardiac monitoring device is in place. PULMONARY VASCULATURE: Normal. LUNGS: Clear. PLEURAL SPACE: No pleural effusion or pneumothorax. BONE:Within normal limits for the patient's age. OTHER FINDINGS:Normal. IMPRESSION: No acute pulmonary findings. DATA REPOSITORY: RADIATION DOSE DELIVERED:
[2023-10-22] MEDS: Normal Saline - Diluent 50 ML VIAL IJ (13:15)
[2023-10-22] MEDS: Omnipaque 350 MG/ML 100 ML BTL IJ (13:16)
[2023-10-22 15:23] LABS: Troponin I 404 ng/L (< or =60)
== END 2023-10-22 16:11 | disposition home or self-care (01) ==
PROVIDERS: Emergency Provider Student in an Organized Health Care Education/Training Program; PCP Physician Assistant Medical
DX: M54.2 Cervicalgia (principal); Z86.79 Personal history of other diseases of the circulatory system
CPT/HCPCS: 36415; 70498; 80053; 93005; 99285; 71046; 83735; 83880; 84484; 85025; 93010; 99283; J3490